=== PATIENT | female | born 1965 | race Caucasian/White ===

== ENCOUNTER 2022-09-28 11:28 | Day surgery (SDC) | payer MEDICARE, MEDICAID ==
[2022-09-27 09:49] VITALS: BMI 35.3
[2022-09-28] MEDS ORDERED: Bupivacaine PF 0.5% 30 ML VIAL ONE (13:26)
[2022-09-28] MEDS ORDERED: PROPOFOL 20 ML ONE (13:31)
[2022-09-28] MEDS ORDERED: Fentanyl 100 MCG/2 ML VIAL ONE (13:31)
[2022-09-28] MEDS ORDERED: diphenhydrAMINE 50 MG/ML VIAL ONE (13:32)
[2022-09-28] MEDS ORDERED: Hydrocortisone Sod Succ/PF 100 mg/2 ml Vial ONE (13:32)
[2022-09-28] MEDS ORDERED: CEFAZOLIN 2 GM VIAL ONE (13:33)
[2022-09-28] MEDS ORDERED: ePHEDrine Sulfate 50 MG/10 ML VIAL ONE (13:58)
[2022-09-28] MEDS ORDERED: Neomycin-Polymyxin 1 ML AMP ONE (14:05)
[2022-09-28] MEDS ORDERED: Glycopyrrolate 0.2 MG/ML 5 ML SYRINGE ONE (14:09)
[2022-09-28] MEDS ORDERED: PHENYLEPHRINE-NS 100 MCG/ML 10 ML SYRINGE ONE (14:10)
== END 2022-09-28 15:45 | disposition home or self-care (01) ==
LOC: CSHSDC 11:28
PROVIDERS: ATTEND Podiatrist Foot & Ankle Surgery
PROC: 0SRP0JZ Replacement of Right Toe Phalangeal Joint with Synthetic Substitute, Open Approach (ICD-10-PCS; principal; 2022-09-28)
PROC: 0LNV0ZZ Release Right Foot Tendon, Open Approach (ICD-10-PCS; 2022-09-28)
DX: M20.41 Other hammer toe(s) (acquired), right foot (principal)
CPT/HCPCS: J1200; J1720; J2704; J3010; S0020

== ENCOUNTER 2023-01-13 09:22 | Day surgery (SDC) | payer MEDICARE, MEDICAID ==
[2023-01-11 11:07] VITALS: BMI 37.4
[2023-01-13] MEDS ORDERED: Bupivacaine PF 0.5% 30 ML VIAL ONE (09:46)
[2023-01-13] MEDS ORDERED: Neomycin-Polymyxin 1 ML AMP ONE (09:46)
[2023-01-13] MEDS ORDERED: Famotidine/PF 20 mg/2ml Vial ONE (10:59)
[2023-01-13] MEDS ORDERED: CEFAZOLIN 2 GM VIAL ONE (11:10)
[2023-01-13] MEDS ORDERED: PROPOFOL 20 ML ONE (11:37)
[2023-01-13] MEDS ORDERED: Fentanyl 100 MCG/2 ML VIAL ONE (11:37)
[2023-01-13] MEDS ORDERED: Lidocaine 2% PF 5 ML VIAL ONE (11:37)
[2023-01-13] MEDS ORDERED: Metoclopramide HCl 10 MG/2 ML VIAL ONE (11:38)
[2023-01-13] MEDS ORDERED: Ondansetron PF 4 MG/2 ML Vial ONE (11:38)
[2023-01-13] MEDS ORDERED: ePHEDrine Sulfate 50 MG/10 ML VIAL ONE (11:52)
[2023-01-13] MEDS ORDERED: PHENYLEPHRINE-NS 100 MCG/ML 10 ML SYRINGE ONE (11:55)
[2023-01-13] MEDS ORDERED: Ketorolac Tromethamine 30 MG/ML VIAL ONE (11:58)
[2023-01-13] MEDS ORDERED: Bacitracin 1 PK ONE (12:30)
== END 2023-01-13 13:50 | disposition home or self-care (01) ==
LOC: CSHSDC 09:22
PROVIDERS: ATTEND Podiatrist Foot & Ankle Surgery
PROC: 0QBQ0ZZ Excision of Right Toe Phalanx, Open Approach (ICD-10-PCS; principal; 2023-01-13)
PROC: 0HQRXZZ Repair Toe Nail, External Approach (ICD-10-PCS; 2023-01-13)
DX: M20.41 Other hammer toe(s) (acquired), right foot (principal); L60.0 Ingrowing nail; E11.9 Type 2 diabetes mellitus without complications; I10 Essential (primary) hypertension; E66.9 Obesity, unspecified; E03.9 Hypothyroidism, unspecified; E78.5 Hyperlipidemia, unspecified; I48.0 Paroxysmal atrial fibrillation; Z88.2 Allergy status to sulfonamides; I25.10 Atherosclerotic heart disease of native coronary artery without angina pectoris; M16.9 Osteoarthritis of hip, unspecified; M17.9 Osteoarthritis of knee, unspecified; Z87.891 Personal history of nicotine dependence; Z79.899 Other long term (current) drug therapy; Z91.040 Latex allergy status; Z68.37 Body mass index [BMI] 37.0-37.9, adult
CPT/HCPCS: 11750; 28285 ×2; 73620; C1713; J1885; J2001; J2405; J2704; J2765; J3010; S0020; S0028

== ENCOUNTER 2025-10-10 07:10 | Day surgery (SDC) | payer MEDICARE, MEDICAID ==
[2025-10-09 08:57] VITALS: BMI 41.2
[2025-10-10] MEDS ORDERED: PROPOFOL 40 ML ONE (08:00)
[2025-10-10] MEDS ORDERED: CEFAZOLIN 2 GM VIAL ONE (08:42)
[2025-10-10] MEDS ORDERED: Ketorolac Tromethamine 30 MG (1 mL) VIAL ONE (10:30)
[2025-10-10] MEDS ORDERED: HYDROcodone/Acetaminophen 5/325 mg Tablet ONE (11:44)
== END 2025-10-10 12:00 | disposition home or self-care (01) ==
LOC: CSHSDC 07:10
PROVIDERS: ATTEND Podiatrist Foot & Ankle Surgery
PROC: 0QBN0ZZ Excision of Right Metatarsal, Open Approach (ICD-10-PCS; principal; 2025-10-10)
DX: M77.41 Metatarsalgia, right foot (principal); I48.0 Paroxysmal atrial fibrillation; I25.10 Atherosclerotic heart disease of native coronary artery without angina pectoris; L97.512 Non-pressure chronic ulcer of other part of right foot with fat layer exposed; I10 Essential (primary) hypertension; I73.9 Peripheral vascular disease, unspecified; Z95.1 Presence of aortocoronary bypass graft; E11.9 Type 2 diabetes mellitus without complications; Z91.040 Latex allergy status; Z88.2 Allergy status to sulfonamides; Z88.8 Allergy status to other drugs, medicaments and biological substances; Z79.82 Long term (current) use of aspirin; Z79.4 Long term (current) use of insulin; Z79.899 Other long term (current) drug therapy; Z79.85 Long-term (current) use of injectable non-insulin antidiabetic drugs; Z90.49 Acquired absence of other specified parts of digestive tract; Z90.710 Acquired absence of both cervix and uterus; Z98.890 Other specified postprocedural states
CPT/HCPCS: 28111; 73620; J0665; J1885; J2250; J2704; J3010